=== PATIENT | female | born 1940 | race Caucasian/White ===

== ENCOUNTER 2016-11-14 22:04 | Emergency (ER) | payer OTHER | END 2016-11-14 23:50 | disposition home or self-care (01) | LOC: ER 22:04 | DX: I10 Essential (primary) hypertension (principal); E78.5 Hyperlipidemia, unspecified; N28.9 Disorder of kidney and ureter, unspecified; Z88.5 Allergy status to narcotic agent; Z88.2 Allergy status to sulfonamides | CPT/HCPCS: 36415; 96374 ==